=== PATIENT | female | born 1935 ===

== ENCOUNTER 2017-07-30 11:23 | Outpatient (CLI) | payer OTHER ==
[~2017-07-30 11:23] MED LIST: COZAAR25 MG; COZAAR50 MG; GLIPIZIDE5 MG; NEURONTIN300 MG; PLAVIX75 MG
== END 2017-07-30 17:00 | disposition home or self-care (01) ==
LOC: RAD 11:23
DX: M25.561 Pain in right knee (principal); M25.562 Pain in left knee

== ENCOUNTER 2017-08-14 09:00 | Outpatient (CLI) | payer OTHER | END 2017-08-14 09:03 | disposition home or self-care (01) | LOC: RX STUDY 09:00 | DX: R13.19 Other dysphagia (principal) ==